=== PATIENT | female | born 1955 | race Caucasian/White ===

== ENCOUNTER 2025-08-13 17:31 | Inpatient (IN) ==
[2025-08-13] MEDS ORDERED: NS 1,000 ML IV 1,000 ML ONE (17:40)
[2025-08-13] MEDS: NS 1,000 ML IV 1,000 ML IV ONE (17:45)
--- NOTE | 2025-08-13 18:01 | EKG ---
Test Reason : Shortness of Breath Blood Pressure : */* mmHG Vent. Rate : 121 BPM Atrial Rate : 121 BPM P-R Int : 130 ms QRS Dur : 74 ms QT Int : 334 ms P-R-T Axes : 64 65 84 degrees QTc Int : 474 ms Sinus tachycardia Biatrial enlargement Left ventricular hypertrophy ( Sokolow-Vigil , Romhilt-Cueva ) Anteroseptal infarct (cited on or before 25-FEB-2025) Abnormal ECG When compared with ECG of 25-FEB-2025 02:43, Significant changes have occurred Confirmed by Bogdan Oneill MD ([id number]) on 08/14/2025 7:21:25 AM Referred By: Confirmed By: Bogdan Oneill MD
[2025-08-13 18:20] LABS: INR 1.15 (0.8-1.3)
[2025-08-13 18:22] LABS: MEAN PLATELET VOLUME 8.8 fL (7.4-11.0); RED CELL DISTRIBUTION WIDTH 16.6 % (11.6-16.5)
[2025-08-13 18:28] LABS: COR CA(FOR HYPOALB) 9.7 mg/dL (8.5-10.1); COR NA(FOR HYPERGLY) 143.0 mmol/L (136-145); CREATININE 2.32 mg/dL (0.55-1.02); eGFR NON BLACK RACES 22.0 (>60)
[2025-08-13] MEDS ORDERED: COMPAZINE INJ ONE (18:30)
[2025-08-13] MEDS: COMPAZINE INJ IVP ONE (18:31)
[2025-08-13 18:40] LABS: BLOOD/HEMOGLOBIN,URINE 1+ (NEGATIVE); LEUKOCYTE ESTERASE ,URINE NEGATIVE (NEGATIVE); NITRITES,URINE NEGATIVE (NEGATIVE)
[2025-08-13 18:41] LABS: GASTRIC OCCULT BLOOD POSITIVE (NEGATIVE); PH,GASTRIC FLUID 5
[2025-08-13 18:53] LABS: APPEARANCE,URINE CLOUDY (CLEAR); SQUAMOUS EPITHELIAL CELL,UR RARE /HPF (NEGATIVE)
[2025-08-13] MEDS: PROTONIX INJ 40 MG VIAL IVP ONE (19:38)
[2025-08-13] MEDS ORDERED: NS 250 ML IV 25 ML IV PRN (20:53)
--- NOTE | 2025-08-13 21:05 | DR.SOBA ---
HPI Time Seen Time Seen by Provider: 08/13/25 17:41 HPI Comment HPI Comment: According to family pt has not been doing well for the past 3 days. She has not been eating, has decreased appetite and has been slowly losing weight .Vomited multiple times dark vomitus with dark stools .She has bene weak.EMS called patient brought to Er for evaluation Complaints Chief Complaint Doctors Comments: vomiting Reviewed Nurses Notes Reviewed: Yes Source History Provided: Family Member and EMS Mode of Arrival Mode of Arrival: EMS Duration Duration: Days PMH PMH Past Medical History: Anxiety, Asthma, Depression and Hypertension Past Surgical History: Yes Surgical History: Ortho Surgery Family History Family Medical History: Hypertension Social History Do you use any recreational Drugs:: No ROS Review of Systems Constitutional: Malaise, Weakness, Fatigue and Loss of Appetite Eyes: No Symptoms Reported ENTM: No Symptoms Reported Respiratoy: No Symptoms Reported Cardiovascular: No Symptoms Reported Gastrointestinal/Abdominal: Diarrhea and Vomiting Genitourinary: No Symptoms Reported Neurological: Weakness Musculoskeletal: Back Pain Integumentary: Other (pale ) Hematologic/Lymphatic: No Symptoms Reported Endocrine: Unexplained Weight Loss PE Vital Signs Vitals: Vital Signs Temperature 97.3 F Temperature 93.8 F Temperature 95.0 F Pulse Rate 135 Pulse Rate 124 Pulse Rate 121 Pulse Rate 127 Pulse Rate 128 Pulse Rate 128 Pulse Rate 130 Pulse Rate 134 Pulse Rate 134 Pulse Rate 123 Pulse Rate 124 Pulse Rate 122 Pulse Rate 124 Pulse Rate 126 Pulse Rate 133 Pulse Rate 130 Pulse Rate 133 Pulse Rate 127 Pulse Rate 128 Pulse Rate 131 Pulse Rate 119 Pulse Rate 117 Pulse Rate 113 Pulse Rate 108 Pulse Rate 110 Pulse Rate 122 Pulse Rate 124 Pulse Rate 121 Pulse Rate 121 Pulse Rate 121 Pulse Rate 111 Pulse Rate 116 Pulse Rate 116 Pulse Rate 121 Pulse Rate 111 Pulse Rate 110 Pulse Rate 111 Respiratory Rate 41 Respiratory Rate 37 Respiratory Rate 35 Respiratory Rate 38 Respiratory Rate 37 Respiratory Rate 36 Respiratory Rate 35 Respiratory Rate 39 Respiratory Rate 36 Respiratory Rate 33 Respiratory Rate 32 Respiratory Rate 32 Respiratory Rate 34 Respiratory Rate 36 Respiratory Rate 40 Respiratory Rate 52 Respiratory Rate 40 Respiratory Rate 36 Respiratory Rate 34 Respiratory Rate 37 Respiratory Rate 27 Respiratory Rate 31 Respiratory Rate 32 Respiratory Rate 29 Respiratory Rate 31 Respiratory Rate 38 Respiratory Rate 39 Respiratory Rate 56 Respiratory Rate 36 Respiratory Rate 32 Respiratory Rate 36 Respiratory Rate 34 Respiratory Rate 16 Blood Pressure 90/52 Blood Pressure 93/54 Blood Pressure 86/50 Blood Pressure 103/51 Blood Pressure 82/61 Blood Pressure 96/61 Blood Pressure 90/56 Blood Pressure 93/59 Blood Pressure 100/61 Blood Pressure 110/42 Blood Pressure 91/70 Blood Pressure 97/68 Blood Pressure 89/63 Blood Pressure 94/65 Blood Pressure 91/64 Blood Pressure 100/51 Blood Pressure 83/61 Blood Pressure 102/58 Blood Pressure 104/52 Blood Pressure 97/52 Blood Pressure 96/53 Blood Pressure 105/65 Blood Pressure 89/54 Blood Pressure 89/54 O2 Sat by Pulse Oximetry 56 O2 Sat by Pulse Oximetry 100 O2 Sat by Pulse Oximetry 100 O2 Sat by Pulse Oximetry 93 O2 Sat by Pulse Oximetry 100 O2 Sat by Pulse Oximetry 100 O2 Sat by Pulse Oximetry 100 O2 Sat by Pulse Oximetry 100 O2 Sat by Pulse Oximetry 93 General General Appearance: Lethargic and Cachectic Head Head Exam: Other (temporal wasting ) Eyes Eye exam: Normal Appearance and PERRL ENT ENT Exam: Mucous Membranes Dry Neck Neck Exam: Normal Inspection Respiratory Respiratory Exam: Normal Lung Sounds Bilat Cardiovascular Cardiovascular Exam: +S1 and +S2 Abdominal Exam Abdominal Exam: Normal Bowel Sounds, Soft and Tenderness Back Back Exam: Other (scoliosis) Skin Skin Exam: Pallor MDM Additional Information Obtained Additional Information Obtained From: Old Records Differential Diagnosis Differential Diagnosis: Mycardial Infarction, Pneumonia and Other (upper gi bleed,sepsis,cachexia,lower GI bleed .dehydration ) COURSE Treatment Treatment: labs ,IV fluids, ROR Labs Reviewed Laboratory Results Reviewed?: Yes 08/13/25 17:50 08/13/25 17:50 Laboratory: WBC 12.4 X10^3/uL (3.6-10.0) H 08/13/25 17:50 RBC 3.38 X10^6/uL (3.5-5.4) L 08/13/25 17:50 Hgb 10.3 g/dL (12.0-16.0) L 08/13/25 17:50 Hct 31.0 % (36.0-47.0) L 08/13/25 17:50 MCV 91.8 fL (80.0-100.0) 08/13/25 17:50 MCH 30.5 pg (27.0-34.0) 08/13/25 17:50 MCHC 33.3 g/dL (33.0-35.0) 08/13/25 17:50 RDW 16.6 % (11.6-16.5) H 08/13/25 17:50 Plt Count 510 X10^3/uL (150.0-450.0) H 08/13/25 17:50 MPV 8.8 fL (7.4-11.0) 08/13/25 17:50 Neut % (Auto) 79.6 % (42.0-75.0) H 08/13/25 17:50 Lymph % (Auto) 14.4 % (21.0-51.0) L 08/13/25 17:50 [place] % (Auto) 5.4 % (0.0-13.0) 08/13/25 17:50 Eos % (Auto) 0.1 % (0.9-2.9) L 08/13/25 17:50 Baso % (Auto) 0.5 % (0.2-1.0) 08/13/25 17:50 Neut # (Auto) 9.9 x10^3/uL (2.2-4.8) H 08/13/25 17:50 Lymph # (Auto) 1.8 X10^3/uL (1.3-2.9) 08/13/25 17:50 [place] # (Auto) 0.7 x10^3/uL (0.3-0.8) 08/13/25 17:50 Eos # (Auto) 0.0 x10^3/uL (0.0-0.2) 08/13/25 17:50 Baso # (Auto) 0.1 X10^3/uL (0.0-0.1) 08/13/25 17:50 Absolute Nucleated RBC 0.1 /100WBC 08/13/25 17:50 PT 14.9 SECONDS (11.8-14.3) 08/13/25 17:50 INR Target Range - 08/13/25 17:50 INR 1.15 (0.8-1.3) 08/13/25 17:50 APTT 26.0 SECONDS (22.9-36.5) 08/13/25 17:50 PTT Comment - 08/13/25 17:50 D-Dimer 0.72 ug/ml (0.0-0.57) H 08/13/25 17:50 Sodium 142 mmol/L (136-145) 08/13/25 17:50 Corrected Sodium 143 mmol/L (136-145) 08/13/25 17:50 Potassium 3.9 mmol/L (3.5-5.1) 08/13/25 17:50 Chloride 94 mmol/L (98-107) L 08/13/25 17:50 Carbon Dioxide 26.7 mmol/L (21-32) 08/13/25 17:50 BUN 42 mg/dL (7-18) H 08/13/25 17:50 Creatinine 2.32 mg/dL (0.55-1.02) H 08/13/25 17:50 Est GFR (MDRD) Af Amer 27 (>60) L 08/13/25 17:50 Est GFR (MDRD) Non-Af 22 (>60) L 08/13/25 17:50 Glucose 147 mg/dL (65-99) H 08/13/25 17:50 Lactic Acid 7.4 mmol/L (0.4-2.0) H* 08/13/25 19:58 Calcium 8.8 mg/dL (8.5-10.1) 08/13/25 17:50 Corrected Calcium 9.7 mg/dL (8.5-10.1) 08/13/25 17:50 Total Bilirubin 0.60 mg/dL (0.2-1.0) 08/13/25 17:50 AST 29 Units/L (15-37) 08/13/25 17:50 ALT 18 Units/L (12-78) 08/13/25 17:50 Alkaline Phosphatase 115 Units/L (46-116) 08/13/25 17:50 Creatine Kinase 197 Units/L (26-192) H 08/13/25 17:50 Troponin I High Sens 31.6 ng/L (4.0-60.0) 08/13/25 22:02 Total Protein 7.0 g/dL (6.4-8.2) 08/13/25 17:50 Albumin 2.9 g/dL (3.4-5.0) L 08/13/25 17:50 Globulin 4.1 g/dL (2.5-4.5) 08/13/25 17:50 Albumin/Globulin Ratio 0.7 Ratio (1.1-2.1) L 08/13/25 17:50 Specimen Type Catherized urine 08/13/25 17:58 Urine Color Yellow (YELLOW) 08/13/25 17:58 Urine Appearance Cloudy (CLEAR) 08/13/25 17:58 Urine pH 6.0 (5.0 - 8.0) 08/13/25 17:58 Ur Specific [place] 1.025 (1.000-1.030) 08/13/25 17:58 Urine Protein 2+ (NEGATIVE) 08/13/25 17:58 Urine Glucose (UA) Negative (NEGATIVE) 08/13/25 17:58 Urine Ketones 2+ (NEGATIVE) 08/13/25 17:58 Urine Blood 1+ (NEGATIVE) 08/13/25 17:58 Urine Nitrite Negative (NEGATIVE) 08/13/25 17:58 Urine Bilirubin Negative (NEGATIVE) 08/13/25 17:58 Urine Urobilinogen Normal (NORMAL) 08/13/25 17:58 Ur Leukocyte Esterase Negative (NEGATIVE) 08/13/25 17:58 Urine RBC 0-2 /HPF (0-3) 08/13/25 17:58 Urine WBC 5-10 /HPF (0-5) A 08/13/25 17:58 Ur Squamous Epith Cells Rare /HPF (NEGATIVE) 08/13/25 17:58 Urine Bacteria 4+ /HPF (NEGATIVE) 08/13/25 17:58 Ur Culture Indicated? Yes/culture set up 08/13/25 17:58 Gastric Fluid pH 5 08/13/25 18:14 Gastric Occult Blood Positive (NEGATIVE) A 08/13/25 18:14 Stool Occult Blood Negative (NEGATIVE) 08/13/25 17:55 Opioid Opioid Risk Tool Age (Zurdo box if 16-45): No History of Preadolescent Sexual Abuse: No Total: 0 Total Score Risk Category: Low Risk Copyright: Murali MONSIVAIS predicting aberrant behaviors Discharge Plan Diagnosis Discharge Problem: Sepsis, Acute UTI, Gastritis, Vomiting blood, Cachexia, Dyspnea Discharge Plan Patient Disposition: 09 ADMITTED INPATIENT Condition: Stable Prescriptions: Continued levothyroxine 100 mcg tablet 100 mcg PO QDAY Discontinued meclizine 25 mg tablet 25 mg PO QPM cyanocobalamin (vitamin B-12) 1,000 mcg/mL solution 1,000 mcg IM Q2W celecoxib 200 mg capsule 200 mg PO BID PRN (Reason: arthritis) gabapentin 600 mg tablet 600 mg PO TID tizanidine 2 mg tablet 2 mg PO BID atorvastatin 10 mg tablet 10 mg PO QPM amlodipine 5 mg tablet 5 mg PO DAILY tramadol 50 mg tablet 50 mg PO TID PRN (Reason: pain) cyproheptadine 4 mg tablet 4 mg PO QID oxycodone-acetaminophen 10-325 mg tablet 1 tab PO QID PRN (Reason: pain) losartan 25 mg tablet 25 mg PO QDAY omeprazole 20 mg capsule,delayed release(DR/EC) 20 mg PO BID montelukast 10 mg tablet 10 mg PO QAM lorazepam 1 mg tablet 1 mg PO QPM Health Concerns: Post Hospitalization: new medications and changes needed to prevent readmission or further decline. Pt educated and given instructions on all concerns. Plan of Treatment: Continue with present treatment and follow up plan. Pt is to keep follow up appointment as instructed and take medications as ordered. Orders to Discharge Patient Discharge Orders: Transfer (Routine); Ordered 08/13/25 Ordered By: Bacilio Elliott Follow ups/Referrals Follow ups/Referrals: ,Misc [STAFF PHYSICIAN] - 3 days Instructions Stand Alone Forms: Find Help Web Site, Post Hospital Follow Up Care Print Language: GREEK Provider Note Additional Notes Labs and scan reviewed with patients family .wbc12.4,hgb 10.3,bun42 cr 2.32,lactic acid 7.4.stool occult neg gastric contents pos for blood ,u/a pos bacteria ,wbc and blood ,cardiac enzymes neg .CXR large hiatal hernia no consolidation noted radiology report pending CT abdomen /pelvis widespread pneumatosis entirety of gastric wall with portal venous gas throughout the liver .Pt was given IV fluids ,zosyn .spoke with dr Adame agreed to have patient admitted for gastritis ,anemia ,uro sepsis cachexia
[2025-08-13] MEDS: ZOSYN VIAL 3.375 GRAMS 3.375 G in NS 100 ML IV 100 ML IV SCH (21:43)
--- NOTE | 2025-08-13 21:58 | CT ---
EXAM: CT ABDOMEN AND PELVIS WITHOUT CONTRAST HISTORY: vomitting coffee ground emesis; COMPARISON: None. TECHNIQUE: Axial CT images were obtained through the abdomen and pelvis without contrast. Coronal reformatted images were included. All CT scans at this facility use dose modulation, iterative reconstruction, and/or weight based dosing when appropriate to reduce radiation dose to as low as reasonably achievable. FINDINGS: Please note that without the use of intravenous contrast, evaluation of organ parenchyma is limited. LOWER THORAX: Large hiatal hernia ABDOMEN: LIVER: Normal GALLBLADDER: Gallbladder surgically absent. SPLEEN: Normal PANCREAS: Normal KIDNEYS: Normal ADRENAL GLANDS: Normal GI TRACT: Stomach is markedly distended with presence of large hiatal hernia. There is widespread pneumatosis throughout the entirety of the gastric montemayor. There is associated extensive portal venous gas throughout the liver. LYMPH NODES: No enlarged nodes VESSELS: Normal PERITONEUM / RETROPERITONEUM: No free gas PELVIS: BLADDER: Decompressed by Galvez catheter. GENITALS: Normal BONES: Severe scoliosis thoracic lumbar spine IMPRESSION: Stomach is markedly distended with presence of large hiatal hernia. There is widespread pneumatosis throughout the entirety of the gastric montemayor. There is associated extensive portal venous gas throughout the liver. THIS IS AN ELECTRONICALLY VERIFIED FINAL REPORT 08/13/2025 9:46 PM - Electronically signed by Leidy Little MD
[2025-08-14] MEDS: NS 1,000 ML IV 1,000 ML IV SCH (00:23)
[2025-08-14] MEDS: ZOSYN VIAL 3.375 GRAMS 3.375 G in NS 100 ML IV 100 ML IV SCH (00:24)
[2025-08-14] MEDS: PROTONIX INJ 40 MG VIAL 80 MG in NS 100 ML IV 80 ML IV SCH (00:33)
[2025-08-14 01:03] VITALS: BMI 14.1
[2025-08-14 04:26] VITALS: TEMP 99; O2SAT 100
[2025-08-14] MEDS: NS 250 ML IV 25 ML IV PRN (05:29)
[2025-08-14 07:05] LABS: MEAN PLATELET VOLUME 8.4 fL (7.4-11.0); RED CELL DISTRIBUTION WIDTH 16.9 % (11.6-16.5)
[2025-08-14 07:17] LABS: COR CA(FOR HYPOALB) 8.8 mg/dL (8.5-10.1); CREATININE 2.81 mg/dL (0.55-1.02); eGFR NON BLACK RACES 18 (>60)
[2025-08-14 08:26] VITALS: BP 86/51; PULSE 146; RESP 40
--- NOTE | 2025-08-14 09:46 | RAD ---
EXAM: AP chest HISTORY: SOB COMPARISON: August 16, 2021 FINDINGS: The heart is probably normal in size although the left heart is obscured by a very large intrathoracic hiatal hernia, which also limits evaluation of the left lower lung. There is no significant abnormality noted in the right chest. No pleural fluid is identified. IMPRESSION: Significant gastric distention with large intrathoracic hiatal hernia. No acute cardiopulmonary lesion identified. THIS IS AN ELECTRONICALLY VERIFIED FINAL REPORT 08/14/2025 9:43 AM - Electronically signed by Tony Pang MD
--- NOTE | 2025-08-14 12:02 | DR.CONSULT ---
CONSULT Consultation for Day of: Date: 08/14/25 Chief Complaint Chief Complaint: Abdominal pain, hypotension, pneumatosis of the stomach and small bowel Allergies Allergies Allergy/AdvReac Type Severity Reaction Status Date / Time aspirin Allergy Verified 07/26/21 10:03 History of Present Illness History of Present Illness: 69-year-old female with several month history of abdominal pain nausea vomiting was gotten worse over the last 3 days. Patient presented to the emergency room and CT scan showed large hiatal hernia with pneumatosis of the portal vein gas. Consistent with ischemic bowel. Patient transferred to the ICU and I was asked to see her. Patient hypotensive , tachycardic and tachypneic and I explained to the nurses that she would probably not survive operation that she be should be made a no code. She was in short while later. Past Medical History Past Medical History: Anxiety, Asthma, COPD, Depression, Dyslipidemia, Hypertension and Hypothyroidism Additional Medical History: significant weight loss recently Past Surgical History Surgical History: Ortho Surgery Family History Family Medical History: Hypertension Social History Does patient currently use any type of tobacco product: No Have you used tobacco products in the last 12 months: No Type of Tobacco Use: None Does any household member use tobacco: No Alcohol Use: None Drug Use: None Medications Home Medications: aspirin Allergy (Verified 07/26/21 10:03) Review of Systems Constitutional: See HPI Eyes: No Symptoms Reported ENT: No Symptoms Reported Respiratory: See HPI Cardiovascular: See HPI Gastrointestinal: See HPI Genitourinary: No Symptoms Reported Musculoskeletal: No Symptoms Reported Skin: No Symptoms Reported Neurological: No Symptoms Reported Physical Exam Vital Signs: Vital Signs Temperature 99.0 F Pulse Rate 146 Pulse Rate 145 Pulse Rate 143 Pulse Rate 140 Respiratory Rate 40 Respiratory Rate 50 Respiratory Rate 42 Respiratory Rate 44 Blood Pressure 86/51 Blood Pressure 70/44 Blood Pressure 79/52 Blood Pressure 86/57 O2 Sat by Pulse Oximetry 100 O2 Sat by Pulse Oximetry 100 O2 Sat by Pulse Oximetry 100 Oriented: Time and Other (patient unable to converse ); negative Person or Place Eyes: Other (would not open eyes to command ) Ear: Normal Nose: Normal Throat: Normal Respiratory: Diminished Throughout Cardiovascular: Tachycardia and Other (hypotensive) : Normal Auscultation: Bowel Sounds: Decreased Palpation: Other (not performed by me , soft and non-tender by ER report ) Tenderness: Other (reported to be OK) Skin: Normal Musculoskeletal: Normal Plan (1) Ischemic bowel syndrome: Status: Acute Plan: With extensive pneumatosis of the stomach and a large hiatal hernia I suspect the stomach was necrotic and this goes along with a large amount of portal venous gas. This patient was not a good candidate for surgery and probably would not have survived. Shortly after she was made a DO NOT RESUSCITATE she . I spoke with the family and answered all of their questions.
--- NOTE | 2025-08-14 13:00 | DR.H&P ---
H&P History & Physical for Day of: H&P Date: 08/14/25 Chief Complaint Chief Complaint: Nausea History of Present Illness History of Present Illness: Patient presented to the ER from home with worsening nausea and coffee-ground emesis. Long history of scoliosis with chronic back pain along with a long history of nausea and vomiting. Worsened after some medication changes with decreased p.o. intake. She would take her medications but not eat as well, per her daughter. After they started noticing brown and black discoloration to her vomit yesterday, she presented to the ER. ER workup concerning for air in stomach wall. Was also hypotensive, tachycardic, and leukocytotic. She is admitted on IV antibiotics for monitoring and possible surgical evaluation. ROS: Obtained from nursing and family. Chronic pain, difficulty with mobility, anorexia, nausea, vomiting, hematemesis, and decreased responsiveness today. PE: Initially; cachectic, elderly female. Tachycardic with no murmur. Lungs clear with shallow respirations. Belly soft, nontender with no distention and hypoactive bowel sounds. GCS of 6 with eyes open spontaneously. Pupils were fixed and dilated. Past Medical History Past Medical History: Anxiety, Asthma, Depression and Hypertension Past Surgical History Surgical History: Ortho Surgery Family History Family Medical History: Hypertension Social History Does patient currently use any type of tobacco product: No Have you used tobacco products in the last 12 months: No Type of Tobacco Use: None Does any household member use tobacco: No Alcohol Use: None Drug Use: None Medications Home Medications: Home Medications Medication Instructions Recorded Confirmed Type amlodipine 5 mg tablet 5 mg PO DAILY 02/25/2506/19 History atorvastatin 10 mg tablet 10 mg PO QPM 02/25/25 History celecoxib 200 mg capsule 200 mg PO BID PRN arthritis 02/25/25 06/19/25 History cyproheptadine 4 mg tablet 4 mg PO QID 02/25/25 History gabapentin 600 mg tablet 600 mg PO TID 02/25/2506/19 History levothyroxine 100 mcg tablet 100 mcg PO QDAY 02/25/25 06/19/25 History lorazepam 1 mg tablet 1 mg PO QPM 02/25/25 5 History losartan 25 mg tablet 25 mg PO QDAY 02/25/2506/19 History montelukast 10 mg tablet 10 mg PO QAM 02/25/25 History omeprazole 20 mg capsule,delayed 20 mg PO BID 02/25/25 06/19/25 History release oxycodone-acetaminophen 10 mg-325 1 tab PO QID PRN cole n 02/25/25 06/19/25 History mg tablet tizanidine 2 mg tablet 2 mg PO BID muscle relaxatio n 02/25/25 06/19/25 History tramadol 50 mg tablet 50 mg PO TID PRN pain 06/19/25 History cyanocobalamin (vitamin B-12) 1,000 mcg IM Q2W 5 06/19/25 History 1,000 mcg/mL injection solution meclizine 25 mg tablet 25 mg PO QPM 06/19/25 History Allergies Allergies Allergy/AdvReac Type Severity Reaction Status Date / Time aspirin Allergy Verified 07/26/21 10:03 Labs 08/14/25 06:50 08/14/25 06:50 Labs: Laboratory WBC 13.9 X10^3/uL (3.6-10.0) H 08/14/25 06:50 RBC 3.46 X10^6/uL (3.5-5.4) L 08/14/25 06:50 Hgb 10.5 g/dL (12.0-16.0) L 08/14/25 06:50 Hct 31.4 % (36.0-47.0) L 08/14/25 06:50 MCV 90.9 fL (80.0-100.0) 08/14/25 06:50 MCH 30.3 pg (27.0-34.0) 08/14/25 06:50 MCHC 33.3 g/dL (33.0-35.0) 08/14/25 06:50 RDW 16.9 % (11.6-16.5) H 08/14/25 06:50 Plt Count 549 X10^3/uL (150.0-450.0) H 08/14/25 06:50 MPV 8.4 fL (7.4-11.0) 08/14/25 06:50 Neut % (Auto) 88.5 % (42.0-75.0) H 08/14/25 06:50 Lymph % (Auto) 8.0 % (21.0-51.0) L 08/14/25 06:50 [place] % (Auto) 3.4 % (0.0-13.0) 08/14/25 06:50 Eos % (Auto) 0.0 % (0.9-2.9) L 08/14/25 06:50 Baso % (Auto) 0.1 % (0.2-1.0) L 08/14/25 06:50 Neut # (Auto) 12.3 x10^3/uL (2.2-4.8) H 08/14/25 06:50 Lymph # (Auto) 1.1 X10^3/uL (1.3-2.9) L 08/14/25 06:50 [place] # (Auto) 0.5 x10^3/uL (0.3-0.8) 08/14/25 06:50 Eos # (Auto) 0.0 x10^3/uL (0.0-0.2) 08/14/25 06:50 Baso # (Auto) 0.0 X10^3/uL (0.0-0.1) 08/14/25 06:50 Absolute Nucleated RBC 0.1 /100WBC 08/14/25 06:50 PT 14.9 SECONDS (11.8-14.3) 08/13/25 17:50 INR Target Range - 08/13/25 17:50 INR 1.15 (0.8-1.3) 08/13/25 17:50 APTT 26.0 SECONDS (22.9-36.5) 08/13/25 17:50 PTT Comment - 08/13/25 17:50 D-Dimer 0.72 ug/ml (0.0-0.57) H 08/13/25 17:50 Sodium 142 mmol/L (136-145) 08/14/25 06:50 Corrected Sodium TNP 08/14/25 06:50 Potassium 4.3 mmol/L (3.5-5.1) 08/14/25 06:50 Chloride 100 mmol/L (98-107) 08/14/25 06:50 Carbon Dioxide 24.6 mmol/L (21-32) 08/14/25 06:50 BUN 53 mg/dL (7-18) H 08/14/25 06:50 Creatinine 2.81 mg/dL (0.55-1.02) H 08/14/25 06:50 Est GFR (MDRD) Af Amer 21 (>60) L 08/14/25 06:50 Est GFR (MDRD) Non-Af 18 (>60) L 08/14/25 06:50 Glucose 108 mg/dL (65-99) H 08/14/25 06:50 Lactic Acid 7.2 mmol/L (0.4-2.0) H* 08/14/25 01:45 Calcium 7.7 mg/dL (8.5-10.1) L 08/14/25 06:50 Corrected Calcium 8.8 mg/dL (8.5-10.1) 08/14/25 06:50 Total Bilirubin 0.60 mg/dL (0.2-1.0) 08/14/25 06:50 AST 176 Units/L (15-37) H 08/14/25 06:50 ALT 75 Units/L (12-78) 08/14/25 06:50 Alkaline Phosphatase 107 Units/L (46-116) 08/14/25 06:50 Creatine Kinase 197 Units/L (26-192) H 08/13/25 17:50 Troponin I High Sens 31.6 ng/L (4.0-60.0) 08/13/25 22:02 Total Protein 6.2 g/dL (6.4-8.2) L 08/14/25 06:50 Albumin 2.6 g/dL (3.4-5.0) L 08/14/25 06:50 Globulin 3.6 g/dL (2.5-4.5) 08/14/25 06:50 Albumin/Globulin Ratio 0.7 Ratio (1.1-2.1) L 08/14/25 06:50 Specimen Type Catherized urine 08/13/25 17:58 Urine Color Yellow (YELLOW) 08/13/25 17:58 Urine Appearance Cloudy (CLEAR) 08/13/25 17:58 Urine pH 6.0 (5.0 - 8.0) 08/13/25 17:58 Ur Specific [place] 1.025 (1.000-1.030) 08/13/25 17:58 Urine Protein 2+ (NEGATIVE) 08/13/25 17:58 Urine Glucose (UA) Negative (NEGATIVE) 08/13/25 17:58 Urine Ketones 2+ (NEGATIVE) 08/13/25 17:58 Urine Blood 1+ (NEGATIVE) 08/13/25 17:58 Urine Nitrite Negative (NEGATIVE) 08/13/25 17:58 Urine Bilirubin Negative (NEGATIVE) 08/13/25 17:58 Urine Urobilinogen Normal (NORMAL) 08/13/25 17:58 Ur Leukocyte Esterase Negative (NEGATIVE) 08/13/25 17:58 Urine RBC 0-2 /HPF (0-3) 08/13/25 17:58 Urine WBC 5-10 /HPF (0-5) A 08/13/25 17:58 Ur Squamous Epith Cells Rare /HPF (NEGATIVE) 08/13/25 17:58 Urine Bacteria 4+ /HPF (NEGATIVE) 08/13/25 17:58 Ur Culture Indicated? Yes/culture set up 08/13/25 17:58 Gastric Fluid pH 5 08/13/25 18:14 Gastric Occult Blood Positive (NEGATIVE) A 08/13/25 18:14 Stool Occult Blood Negative (NEGATIVE) 08/13/25 17:55 Physical Exam Vital Signs: Vital Signs Temperature 99.0 F Temperature 97.2 F Temperature 97.2 F Pulse Rate [Left Brachial] 129 Pulse Rate 145 Pulse Rate 143 Pulse Rate 140 Pulse Rate 133 Pulse Rate 126 Pulse Rate 123 Pulse Rate 129 Pulse Rate 134 Pulse Rate 133 Respiratory Rate 50 Respiratory Rate 42 Respiratory Rate 44 Respiratory Rate 37 Respiratory Rate 32 Respiratory Rate 35 Respiratory Rate 45 Respiratory Rate 45 Respiratory Rate 40 Respiratory Rate 40 Blood Pressure [Left Arm] 117/89 Blood Pressure 70/44 Blood Pressure 79/52 Blood Pressure 86/57 Blood Pressure 92/58 Blood Pressure 89/32 Blood Pressure 107/52 Blood Pressure 125/60 Blood Pressure 117/89 Blood Pressure 78/56 O2 Sat by Pulse Oximetry 100 O2 Sat by Pulse Oximetry 100 O2 Sat by Pulse Oximetry 100 O2 Sat by Pulse Oximetry 94 Assessment/Plan (1) Ischemic bowel syndrome: Narrative Support Text: Increase fluids. IV antibiotics. Patient is DNR per checkout from ER but we will confirm with family. Surgery consulted and will evaluate patient. She is not a surgical candidate. Status: Acute (2) Cachexia: Status: Acute (3) Vomiting blood: Qualifiers: Nausea presence: with nausea Qualified Code(s): K92.0 - Hematemesis Status: Acute (4) Gastritis: Qualifiers: Gastritis type: unspecified gastritis Chronicity: chronic Gastritis bleeding: with bleeding Qualified Code(s): K29.51 - Unspecified chronic gastritis with bleeding Status: Acute (5) Severe sepsis: Status: Acute
--- NOTE | 2025-08-14 13:02 | DR.DECEASE ---
FORM Date of Admission Date of Admission: 08/13/25 Admission Diagnosis Current Active Problems Problem Status Onset Dyspnea Acute Cachexia Acute Vomiting blood Acute Gastritis Acute Acute UTI Acute Sepsis Acute Discharge Diagnosis (1) Ischemic bowel syndrome: Problems (Updated 08/14/25 @ 13:00 by Justin Rodriguez MD) Severe sepsis (Acute) A41.9, R65.20 Ischemic bowel syndrome (Acute) K55.9 Dyspnea (Acute) R06.00 Cachexia (Acute) R64 Vomiting blood (Acute) K92.0 Gastritis (Acute) K29.70 Acute UTI (Acute) N39.0 Sepsis (Acute) A41.9 Acute pain of left shoulder (Acute) M25.512 Head injury (Acute) S09.90XA Hematoma of right eye region (Acute) S00.11XA Fall (Acute) W19.XXXA Frequent falls (Acute) R29.6 Cachexia (Acute) R64 At risk for polypharmacy (Acute) Z91.89 Acute alteration in mental status (Acute) R41.82 Hypertension, uncontrolled (Acute) I10 Anxiety (Acute) F41.9 Allergic reaction (Acute) T78.40XA Tremor (Acute) R25.1 (2) Cachexia: Problems (Updated 08/14/25 @ 13:00 by Justin Rodriguez MD) Severe sepsis (Acute) A41.9, R65.20 Ischemic bowel syndrome (Acute) K55.9 Dyspnea (Acute) R06.00 Cachexia (Acute) R64 Vomiting blood (Acute) K92.0 Gastritis (Acute) K29.70 Acute UTI (Acute) N39.0 Sepsis (Acute) A41.9 Acute pain of left shoulder (Acute) M25.512 Head injury (Acute) S09.90XA Hematoma of right eye region (Acute) S00.11XA Fall (Acute) W19.XXXA Frequent falls (Acute) R29.6 Cachexia (Acute) R64 At risk for polypharmacy (Acute) Z91.89 Acute alteration in mental status (Acute) R41.82 Hypertension, uncontrolled (Acute) I10 Anxiety (Acute) F41.9 Allergic reaction (Acute) T78.40XA Tremor (Acute) R25.1 (3) Vomiting blood: Problems (Updated 08/14/25 @ 13:00 by Justin Rodriguez MD) Severe sepsis (Acute) A41.9, R65.20 Ischemic bowel syndrome (Acute) K55.9 Dyspnea (Acute) R06.00 Cachexia (Acute) R64 Vomiting blood (Acute) K92.0 Gastritis (Acute) K29.70 Acute UTI (Acute) N39.0 Sepsis (Acute) A41.9 Acute pain of left shoulder (Acute) M25.512 Head injury (Acute) S09.90XA Hematoma of right eye region (Acute) S00.11XA Fall (Acute) W19.XXXA Frequent falls (Acute) R29.6 Cachexia (Acute) R64 At risk for polypharmacy (Acute) Z91.89 Acute alteration in mental status (Acute) R41.82 Hypertension, uncontrolled (Acute) I10 Anxiety (Acute) F41.9 Allergic reaction (Acute) T78.40XA Tremor (Acute) R25.1 (4) Gastritis: Problems (Updated 08/14/25 @ 13:00 by Justin Rodriguez MD) Severe sepsis (Acute) A41.9, R65.20 Ischemic bowel syndrome (Acute) K55.9 Dyspnea (Acute) R06.00 Cachexia (Acute) R64 Vomiting blood (Acute) K92.0 Gastritis (Acute) K29.70 Acute UTI (Acute) N39.0 Sepsis (Acute) A41.9 Acute pain of left shoulder (Acute) M25.512 Head injury (Acute) S09.90XA Hematoma of right eye region (Acute) S00.11XA Fall (Acute) W19.XXXA Frequent falls (Acute) R29.6 Cachexia (Acute) R64 At risk for polypharmacy (Acute) Z91.89 Acute alteration in mental status (Acute) R41.82 Hypertension, uncontrolled (Acute) I10 Anxiety (Acute) F41.9 Allergic reaction (Acute) T78.40XA Tremor (Acute) R25.1 (5) Severe sepsis: Problems (Updated 08/14/25 @ 13:00 by Justin Rodriguez MD) Severe sepsis (Acute) A41.9, R65.20 Ischemic bowel syndrome (Acute) K55.9 Dyspnea (Acute) R06.00 Cachexia (Acute) R64 Vomiting blood (Acute) K92.0 Gastritis (Acute) K29.70 Acute UTI (Acute) N39.0 Sepsis (Acute) A41.9 Acute pain of left shoulder (Acute) M25.512 Head injury (Acute) S09.90XA Hematoma of right eye region (Acute) S00.11XA Fall (Acute) W19.XXXA Frequent falls (Acute) R29.6 Cachexia (Acute) R64 At risk for polypharmacy (Acute) Z91.89 Acute alteration in mental status (Acute) R41.82 Hypertension, uncontrolled (Acute) I10 Anxiety (Acute) F41.9 Allergic reaction (Acute) T78.40XA Tremor (Acute) R25.1 Problems (Updated 08/14/25 @ 13:00 by Justin Rodriguez MD) Severe sepsis (Acute) A41.9, R65.20 Ischemic bowel syndrome (Acute) K55.9 Dyspnea (Acute) R06.00 Cachexia (Acute) R64 Vomiting blood (Acute) K92.0 Gastritis (Acute) K29.70 Acute UTI (Acute) N39.0 Sepsis (Acute) A41.9 Acute pain of left shoulder (Acute) M25.512 Head injury (Acute) S09.90XA Hematoma of right eye region (Acute) S00.11XA Fall (Acute) W19.XXXA Frequent falls (Acute) R29.6 Cachexia (Acute) R64 At risk for polypharmacy (Acute) Z91.89 Acute alteration in mental status (Acute) R41.82 Hypertension, uncontrolled (Acute) I10 Anxiety (Acute) F41.9 Allergic reaction (Acute) T78.40XA Tremor (Acute) R25.1 Labs 08/14/25 06:50 08/14/25 06:50 Hospital Course Hospital Course: Upon my arrival to the facility, was immediately called by nursing to evaluate patient. She had become unresponsive with pupils fixed and dilated, eyes open. Family was contacted and did confirm DNR/DNI status. Fluids were increased, surgery was consulted, antibiotics were continued. Shortly after the phone call with her daughter, patient . No ocular reflex, no cardiac activity heard on auscultation, no pulses palpated. Thought to be secondary to septic emboli from ischemic bowel. Likely a complication of her anorexia, medications, and chronic nausea/vomiting. Expiration Expiration Date: 08/14/25 Expiration Time: 07:57 Pronounced by: Justin Rodriguez Preliminary Cause of : Severe sepsis due to ischemic gut
[2025-08-14] MEDS ORDERED: ZOSYN VIAL 3.375 GRAMS 3.375 G in NS 100 ML IV 100 ML IV SCH (21:00)
== END 2025-08-14 10:10 | disposition expired | DRG 871 ==
LOC: SUPCPDRO → ER 17:31 → ICU 23:37
PROVIDERS: ADMIT Family Medicine; ATTEND Family Medicine
DX: A41.89 Other specified sepsis; R06.02 Shortness of breath; M54.9 Dorsalgia, unspecified; R65.20 Severe sepsis without septic shock; I11.9 Hypertensive heart disease without heart failure; R94.31 Abnormal electrocardiogram [ECG] [EKG]; K29.51 Unspecified chronic gastritis with bleeding; F32.89 Other specified depressive episodes; E03.8 Other specified hypothyroidism; R79.1 Abnormal coagulation profile; R64 Cachexia; B96.29 Other Escherichia coli [E. coli] as the cause of diseases classified elsewhere; K44.9 Diaphragmatic hernia without obstruction or gangrene; K55.069 Acute infarction of intestine, part and extent unspecified; R53.1 Weakness; F41.8 Other specified anxiety disorders; R79.89 Other specified abnormal findings of blood chemistry; R73.09 Other abnormal glucose; R00.0 Tachycardia, unspecified; E78.5 Hyperlipidemia, unspecified; J44.9 Chronic obstructive pulmonary disease, unspecified; M41.80 Other forms of scoliosis, site unspecified; Z68.1 Body mass index [BMI] 19.9 or less, adult; Z66 Do not resuscitate; N39.0 Urinary tract infection, site not specified